=== PATIENT | female | born 2000 | race Caucasian/White ===

== ENCOUNTER 2023-11-25 10:00 | Outpatient (CLI) | payer BC, SELFPAY ==
[2023-11-25 10:48] LABS: HCG Qualitative, Serum Positive (Negative)
[2023-11-25 12:26] LABS: HCG,Quantitative 42 mIU/ml (0-5.42)
[2023-11-25 15:28] LABS: HIV (1&2) Antibody Rapid NONREACTIVE (NONREACTIVE)
[2023-11-26 05:27] LABS: HBsAg Screen Negative (Negative); HCV Ab Non Reactive (Non Reactive); Hep A Ab, IGM Negative (Negative); Hep B Core Ab, IgM Negative (Negative)
[2023-11-26 12:30] LABS: Rapid Plasma Reagin Ab Titer Non Reactive titer (NonRea<1:1)
== END 2023-11-25 23:59 | disposition home or self-care (01) ==
PROVIDERS: Obstetrics & Gynecology; PCP Family Medicine; Visit Provider Internal Medicine Adolescent Medicine
DX: Z34.90 Encounter for supervision of normal pregnancy, unspecified, unspecified trimester (principal); N92.6 Irregular menstruation, unspecified; T74.21XA Adult sexual abuse, confirmed, initial encounter
CPT/HCPCS: 36415; 80074; 84702; 84703; 86593; 87389

== ENCOUNTER 2023-11-27 14:30 | Outpatient (CLI) | payer BC, SELFPAY ==
[2023-11-27 15:39] LABS: HCG,Quantitative 89 mIU/ml (0-5.42)
[2023-11-29 10:18] LABS: Progesterone 9.6 ng/mL (.)
== END 2023-11-27 23:59 | disposition home or self-care (01) ==
LOC: LAB 14:31
PROVIDERS: PCP Family Medicine; Visit Provider Obstetrics & Gynecology
DX: Z34.90 Encounter for supervision of normal pregnancy, unspecified, unspecified trimester (principal)
CPT/HCPCS: 36415; 84144; 84702